=== PATIENT | female | born 1940 | race Caucasian/White ===

== ENCOUNTER 2017-04-06 18:50 | Emergency (ER) | payer OTHER ==
[~2017-04-06] VITALS: Ht 152.4 cm; Wt 59.0 kg
[2017-04-06 18:59] VITALS: Ht 152.4 cm; Wt 59.0 kg
[2017-04-06] MEDS ORDERED: SOD CHLORIDE 0.9% 500 ML IV STA (19:26)
[2017-04-06 19:36] LABS: ADD SCAN DIFF NO
[2017-04-06 19:38] LABS: BASOPHILS % 0.3 % (0.0-2.0); EOSINOPHILS % 0.6 % (0.0-7.0); HEMATOCRIT 27.8 % (37.0-47.0); HEMOGLOBIN 9.3 g/dl (12.0-16.0); LYMPHOCYTES # 1.6 10^3/ul (0.8-2.9); LYMPHOCYTES % 25.3 % (15.0-51.0); MEAN CORPUSCULAR HGB CONC 33.5 g/dl (32.0-37.0); MEAN CORPUSCULAR VOLUME 92.7 fl (82.0-101.0); MEAN PLATELET VOLUME 9.2 fl (7.4-10.4); MONOCYTE # 0.5 10^3/ul (0.3-0.9); MONOCYTES % 7.4 % (0.0-11.0); NEUTROPHIL # 4.1 10^3/ul (1.6-7.5); NEUTROPHILS % 65.6 % (39.0-77.0); PLATELET COUNT 343 10^3/UL (140-415); RED CELL DISTRIBUTION WIDTH 14.4 % (11.5-14.5); WHITE BLOOD COUNT 6.2 10^3/ul (4.8-10.8)
[2017-04-06 19:50] LABS: ALBUMIN 4.1 g/dl (3.3-4.9); POTASSIUM 4.5 mmol/L (3.5-5.1)
[2017-04-06 19:52] LABS: CREATININE 1.31 mg/dl (0.44-1.00)
[2017-04-06 19:53] LABS: ALBUMIN/GLOBULIN RATIO 1.05; CALCIUM 9.1 mg/dl (8.4-10.2)
--- NOTE | 2017-04-06 20:07 | RADRPT ---
PROCEDURE: Noncontrast CT Head. CLINICAL INDICATION: Intracranial hemorrhage. TECHNIQUE: Noncontrast CT of the head was obtained. The administered radiation dose was CTDI vol = 44.58 mGy, DLP = 720.23 mGy-cm. One or more of the following dose reduction techniques were used: Au tomated exposure control, Adjustment of the mA and/or kV according to patient size, or Use of iterat mitchell reconstruction technique. COMPARISON: There are no similar studies submitted for comparison. FINDINGS: There is mild to moderate generalized cerebral volume loss. There is mild to moderate periventricula r hypoattenuation suggesting chronic microvascular ischemic changes. There are mild vascular calcif ications within the intracranial carotid arteries. 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 There is no loss of shaw-white differentiation to suggest acute territorial infarction. There is no acute intracranial hemorrhage or extra-axial fluid collection. There is no mass effect. No midline shift is identified. The orbits are within normal limits. The paranasal sinuses are well aerated. No destructive osseous lesion is identified. IMPRESSION: 1. No acute intracranial hemorrhage or extra-axial fluid collection. 2. Mild to moderate generalized cerebral volume loss. 3. Mild to moderate chronic microvascular ischemic changes. 4. 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 Further findings as detailed above. RPTAT: HVF .Indio Marte MD, Date Time Electronically viewed and signed by .Indio Marte MD, on 04/06/2017 20:07 .F/
[2017-04-06 20:20] LABS: ADD UMIC NO; URINE BILIRUBIN (Dip) NEGATIVE (NEGATIVE); URINE BLOOD (Dip) NEGATIVE (NEGATIVE); URINE COLOR YELLOW (YELLOW); URINE KETONES (Dip) NEGATIVE (NEGATIVE); URINE LEUKOCYTE ESTERASE (Dip) NEGATIVE (NEGATIVE); URINE NITRITE (Dip) NEGATIVE (NEGATIVE); URINE TOTAL PROTEIN (Dip) NEGATIVE (NEGATIVE); URINE UROBILINOGEN (Dip) 0.2 E.U./dL (0.1-1.0)
--- NOTE | 2017-04-06 20:24 | ERD ---
ER Documentation Chief Complaint Date/Time DATE: 04/06/17 TIME: 20:22 Chief Complaint Weakness and slurring of speech since last night getting worst HPI 76-year-old woman brought in by family members for generalized weakness since last night and episodes of anxiety. She had trouble speaking during these few seconds and these episodes occurred about twice over the last 2 days. She had no seizure activity, no loss of consciousness, no weakness in her arms or legs, no complaints of headache. She has 1 more day of levofloxacin therapy to use for previously diagnosed pneumonia. Patient's respiratory and pulmonary symptoms have improved and she is without complaints at this time while here in the ED. ROS All systems reviewed and are negative except as per history of present illness. Medications Home Meds Reported Medications Pioglitazone Hcl-Metformin Hcl (Pioglitazone Hcl-Metformin Hcl) 15-850 Mg Tablet , 1 TAB PO DAILY, #30 04/06/17 Aspirin* (Aspirin* EC) 81 Mg Tablet.dr, 81 MG PO DAILY, TAB 04/06/17 Simvastatin* (Zocor*) 40 Mg Tablet, 40 MG PO QHS, #30 TAB 04/06/17 Glipizide* (Glipizide*) 10 Mg Tablet, 10 MG PO AC BREAKFAST, TAB 04/06/17 Glipizide* (Glipizide*) 5 Mg Tablet, 5 MG PO AC DINNER, TAB 04/06/17 Discontinued Reported Medications Metformin* (Glucophage*) 500 Mg Tab, 500 MG PO WITH BREAKFAST LUNCH, #30 TAB 04/06/17 Allergies Allergies: Coded Allergies: No Known Allergy (Unverified , 04/06/17) PMhx/Soc Hypercholesterolemia, hypertension, diabetes mellitus, recent pneumonia which was initially treated as an inpatient with IV antibiotics and with continued levofloxacin use (last day) History of Surgery: Yes (STOMACH TUMOR REMOVED) Hx Cardiac Disorders: Yes (HTN, HIGH CHOLESTEROL) Hx Miscellaneous Medical Probl: Yes (DM2) Hx Alcohol Use: No Hx Substance Use: No Hx Tobacco Use: No Smoking Status: Never smoker FmHx Family History: No diabetes Physical Exam Vitals Vital Signs Date Time Temp Pulse Resp B/P Pulse Ox O2 Delivery O2 Flow Rate FiO2 04/06/17 20:37 71 16 155/58 97 Room Air 04/06/17 18:59 97.7 84 20 181/78 97 Physical Exam GENERAL: Well-developed, well-nourished, well-hydrated, in no apparent distress , looks nontoxic in appearance HEENT: Moist mucous membranes, pink conjunctiva, no cervical spine tenderness or step-off deformities, no goiter, no jaundice or icterus, extraocular movements intact without pain. No submandibular induration, and no pharyngeal erythema NEURO: Alert and oriented 3, cranial nerves II through XII intact bilaterally, pupils equal round reactive to light, no focal deficits or facial asymmetry, sensation intact distally Strength 5/5 in upper and lower extremities bilaterally. No pronator drift, no cerebellar signs, no nystagmus CARDIAC: Regular rate and rhythm, no murmurs rubs or gallops LUNGS: Clear bilaterally no wheezing crackles or stridor ABDOMEN: Soft nontender, no guarding, no rigidity, no rebound, no psoas sign no obturator sign. Normoactive bowel sounds SKIN: Warm and dry to touch, no abrasions, contusions, or hematomas, no lacerations, no ecchymosis, no target lesions, and without ulcers EXTREMITIES: No clubbing cyanosis or edema, calves are bilaterally symmetrical, no Homans sign, no popliteal cord sign. Distal pulses equal and bilateral PSYCH: Normal affect without agitation or irritability Result Diagram: 04/06/17191304/06/171913 Results 24 hrs Laboratory Tests Test 04/06/17 19:14 04/06/17 20:10 White Blood Count 6.210^3/ul Red Blood Count 3.0010^6/ul Hemoglobin 9.3g/dl Hematocrit 27.8% Mean Corpuscular Volume 92.7fl Mean Corpuscular Hemoglobin 31.0pg Mean Corpuscular Hemoglobin Concent 33.5g/dl Red Cell Distribution Width 14.4% Platelet Count 67249^3/UL Mean Platelet Volume 9.2fl Neutrophils % 65.6% Lymphocytes % 25.3% Monocytes % 7.4% Eosinophils % 0.6% Basophils % 0.3% Nucleated Red Blood Cells % 0.0/100WBC Neutrophils # 4.110^3/ul Lymphocytes # 1.610^3/ul Monocytes # 0.510^3/ul Eosinophils # 0.010^3/ul Basophils # 0.010^3/ul Nucleated Red Blood Cells # 0.010^3/ul Sodium Level 137mmol/L Potassium Level 4.5mmol/L Chloride Level 99mmol/L Carbon Dioxide Level 24mmol/L Anion Gap 19 Blood Urea Nitrogen 26mg/dl Creatinine 1.31mg/dl Glucose Level 232mg/dl Calcium Level 9.1mg/dl Total Bilirubin 0.0mg/dl Direct Bilirubin 0.00mg/dl Indirect Bilirubin 0.0mg/dl Aspartate Amino Transf (AST/SGOT) 22IU/L Alanine Aminotransferase (ALT/SGPT) 34IU/L Alkaline Phosphatase 98IU/L Total Protein 8.0g/dl Albumin 4.1g/dl Globulin 3.90g/dl Albumin/Globulin Ratio 1.05 Lipase 87U/L Urine Color YELLOW Urine Clarity CLEAR Urine pH 6.5 Urine Specific [place] <=1.005 Urine Ketones NEGATIVE Urine Nitrite NEGATIVE Urine Bilirubin NEGATIVE Urine Urobilinogen 0.2 E.U./dL Urine Leukocyte Esterase NEGATIVE Urine Hemoglobin NEGATIVE Urine Glucose 0.1%% Urine Total Protein NEGATIVE Current Medications Medications (Trade) Dose Ordered Sig/Pete Route PRN Reason Start Time Stop Time Status Last Admin Dose Admin Sodium Chloride (NS) 500 ml @ 500 mls/hr Q1H STAT IV 04/06/17 19:26 04/06/17 20:25 DC 04/06/17 19:32 Procedures/MDM IV line was established patient was placed on cardiac exercise physiologist rhythm strip revealed a sinus rhythm at about 80 bpm with upright P and T waves. Patient was afebrile. EKG performed, read by me: 83 bpm, normal sinus rhythm, normal axis, no acute ST segment changes, narrow QRS complex, with good R-wave progression in precordial leads. CT scan of the brain was performed that was negative for acute bleed mass or shift, no acute infarct noted. Please refer to radiologist dictation for full report. CBC revealed mild anemia with a hemoglobin of 9.3, electrolytes revealed mild dehydration with a BUN/creatinine of 26/1.3, liver function tests were unremarkable, troponin was negative, urine analysis was negative for infection. Neurologic examination was repeated by me prior to discharge, remains normal, she has no focal deficits, gait normal, strength is normal. I have very low suspicion for acute cerebrovascular accident and she can be managed as an outpatient with continued follow-up with her PMD. Differential diagnoses considered, included but not limited to acute coronary syndrome, pulmonary embolism, aortic dissection, abdominal aortic aneurysm, sepsis, stroke, meningitis, encephalitis, pneumonia, appendicitis, cholecystitis , bowel obstruction, pyelonephritis, nephrolithiasis, cystitis, as well as metabolic, hematologic, and electrolyte abnormalities. As well as abscess, cellulitis, fractures, and dislocations. Patient feels much better at this time, and vital signs are normal, symptoms have improved. I did give strict instructions to return to the ED if symptoms continue or worsen, patient will otherwise follow-up with primary care physician. Patient understood instructions and agreed to plan. Departure Diagnosis: Primary Impression: Acute weakness Additional Impression: Dehydration Condition: Good Patient Instructions: Weakness, Unk Cause AMELIA MENON MD April 06, 2017 20:24
[2017-04-06] MEDS ORDERED: METF500T4 PO (20:28)
[2017-04-06] MEDS ORDERED: GLIP-95 PO (20:32)
[2017-04-06] MEDS ORDERED: SIMV40TA2 PO (20:32)
[2017-04-06] MEDS ORDERED: GLIP5TAB13 PO (20:32)
[2017-04-06] MEDS ORDERED: ASPI-664 PO (20:33)
[2017-04-06] MEDS ORDERED: PIOG1TAB35 PO (20:35)
[2017-04-06 20:37] VITALS: BP 155/58; PULSE 71; RESP 16
== END 2017-04-06 20:52 | disposition home or self-care (01) ==
LOC: E/R 18:50
DX: R53.1 Weakness (principal); E86.0 Dehydration; I10 Essential (primary) hypertension; E11.9 Type 2 diabetes mellitus without complications; R47.81 Slurred speech; Z79.82 Long term (current) use of aspirin; Z79.84 Long term (current) use of oral hypoglycemic drugs
CPT/HCPCS: 36415; 70450; 80053; 81003; 83690; 85025; 93005; 99285; J7040